=== PATIENT | female | born 1990 | race Caucasian/White ===

== ENCOUNTER → 2025-01-15 09:55 | Outpatient (REF) | payer BC, SELFPAY | LOC: HWCARD 09:55 | PROVIDERS: ATTENDING PHYSICIAN Nurse Practitioner Adult Health; FAMILY PHYSICIAN Nurse Practitioner Family; REFERRING PHYSICIAN Psychiatry & Neurology Sleep Medicine | DX: I49.9 Cardiac arrhythmia, unspecified (principal) | CPT/HCPCS: 93005 ==